=== PATIENT | male | born 1985 | race Caucasian/White ===

== ENCOUNTER 2022-02-05 08:55 | Outpatient (CLI) | payer BC, SELFPAY ==
[2022-02-05 14:32] LABS: Glucose* 92 mg/dL (60-115); Triglycerides* 168 mg/dL (40-149)
[2022-02-05 14:33] LABS: HDL Cholesterol* 79 mg/dL (>=40)
[2022-02-05 14:46] LABS: Cholesterol* 376 mg/dL (90-199); LDL Cholesterol Calculated 263 mg/dL (<100)
== END 2022-02-05 08:56 | disposition home or self-care (01) ==
LOC: NFLDREF 12:27
PROVIDERS: PCP Family Medicine; Visit Provider Family Medicine
DX: Z13.6 Encounter for screening for cardiovascular disorders (principal); Z13.1 Encounter for screening for diabetes mellitus
CPT/HCPCS: 80061; 82947

== ENCOUNTER 2022-02-24 12:55 | Outpatient (CLI) | payer BC, SELFPAY ==
[2022-02-24 14:00] VITALS: BP 141/101; PULSE 93
--- NOTE | 2022-02-24 16:25 | PM.ST ---
Stress Test Note Date Date of test: 02/24/22 Providers Primary care provider: Mak Neri Stress test physician: Azar Crawford Stress Test Note Stress test ordered: Stress Echo Indication for test: Dyspnea on exertion Results discussion: 20 is a very nice 28-year-old gentleman who presents for the above test after discussion the risks benefits and side effects he would like to proceed pretest cardiac stress test medical history form is reviewed, pretest EKG shows normal sinus rhythm, with no acute ST wave changes, blood pressure 154/96, and rhythm is sinus with a ventricular rate of 78. Following normal [facility] protocol patient is exercised for a total time of 12 minutes, he had no chest pain shortness of breath or any other abnormalities, test is terminated because of fulfillment of protocol, conditioning was felt to be excellent, review of the test strips post, showed no ST wave changes no dysrhythmias, Impression: Negative electrographic portion of stress echo Follow up suggested: Await echo images clinical correlation with this will be needed. Patient left this testing facility in excellent condition
== END 2022-02-24 12:56 | disposition home or self-care (01) ==
LOC: STRESS 12:55
PROVIDERS: PCP Family Medicine; Visit Provider Family Medicine
DX: R06.09 Other forms of dyspnea (principal); E78.5 Hyperlipidemia, unspecified
CPT/HCPCS: 93016; 93325; 93351